=== PATIENT | female | born 1965 | race Caucasian/White ===

== ENCOUNTER → 2016-06-21 | Outpatient (CLI) | payer OTHER ==
--- NOTE | 2016-06-23 11:30 | US ---
EXAMINATION TYPE: US MSK Right forefoot DATE OF EXAM: 06/21/2016 8:40 AM COMPARISON: NONE CLINICAL HISTORY: 50-year-old female S 93.621 Second and third plantar plate tear. TECHNIQUE: Targeted sonographic examination of the first, second, and third digits including the webs paces for assessment of the plantar plates and along the site of patient's pain dorsally at the secon d and third digits. FINDINGS: Evaluation of the plantar aspect of the first, second, and third MTP joints shows no convincing evide nce for plantar plate tear. The overlying flexor tendons appear within normal limits without any teno synovial fluid. Targeted scanning along the dorsum of the first MTP joint shows no discrete abnormality. Targeted scanning along the dorsum of the second MTP joint shows prominent area of lobulated hypoecho genicity spanning 1.6 cm and measuring up to 0.4 cm thick. Some subtle internal echogenic foci seem t o be present within. There is no significant hyperemia. There may be some subtle erosions of the dors al proximal phalangeal base and the dorsal metatarsal head/neck. Targeted scanning along the dorsum of the third MTP joint suggests a trace underlying joint effusion and mild tenosynovial fluid along the extensor tendon. IMPRESSION: 1. No convincing evidence for second or third plantar plate tear within the right foot. 2. Apparent pannus or synovitis along the dorsal 2nd MTP joint. There may be some internal speckles a nd possible subtle marginal erosions. Differential considerations include an inflammatory arthropathy such as RA or crystalline arthropathy such as gout. A dorsal capsular injury is an alternative consi deration. Clinically correlate. 3. Mild tenosynovitis of the extensor tendon along the dorsum of the third MTP joint.
== END | disposition home or self-care (01) ==
LOC: RADUSWWP 07:43
PROVIDERS: ATTEND Podiatrist Foot & Ankle Surgery
DX: S93.504A Unspecified sprain of right lesser toe(s), initial encounter (principal); M65.871 Other synovitis and tenosynovitis, right ankle and foot; X58.XXXA Exposure to other specified factors, initial encounter

== ENCOUNTER → 2016-07-04 | Outpatient (CLI) | payer OTHER ==
[2016-07-04 16:47] LABS: Basophils # (A) 0.1 k/uL (0-0.2); Basophils % (A) 1 %; CH 29.7; CHCM 32.1; Eosinophils # (A) 0.2 k/uL (0-0.7); Eosinophils % (A) 4 %; HCT 40.5 % (34.0-46.0); HDW 2.23; HGB 12.9 gm/dL (11.4-16.0); Luc # (Auto) 0.13; Luc % (Auto) 2; Lymphocytes # (A) 2.4 k/uL (1.0-4.8); Lymphocytes % (A) 37 %; MCH 29.7 pg (25.0-35.0); MCHC 31.9 g/dL (31.0-37.0); Mean Platelet Volume 6.6; Monocytes # (A) 0.3 k/uL (0-1.0); Monocytes % (A) 5 %; Neutrophils # (A) 3.3 k/uL (1.3-7.7); Neutrophils % (A) 52 %; RBC 4.36 m/uL (3.80-5.40); RDW 13.4 % (11.5-15.5); WBC 6.4 k/uL (3.8-10.6); WBC (Perox) 6.69
[2016-07-04 17:01] LABS: C Reactive Protein <5.0 mg/L (<10.0)
[2016-07-04 17:03] LABS: Rheumatoid Factor, Qnt <9 IU/mL (<12)
[2016-07-04 18:13] LABS: Erythrocyte Sedimentation Rate 12 mm/hr (0-20)
--- NOTE | 2016-07-04 23:49 | MR ---
EXAMINATION TYPE: MR foot RT wo con DATE OF EXAM: 07/04/2016 9:58 PM COMPARISON: NONE HISTORY: 2nd & 3rd MPJ pain Standard multiplanar, multisequence MRI departmental protocol Multiplanar, multisequence images of the right foot were acquired. Diffusion weighted imaging was per formed. FINDINGS: The Achilles tendon is intact. Plantar fascia is intact. There is a small ankle joint effus ion. The medial and lateral flexor tendons of the ankle are intact. The metatarsals are intact. There is no evidence of a fracture. There is minimal joint fluid seen at the first to fourth MP joints neil t is probably above normal. I see no bony destructive process. The tarsal bones are intact. The toes appear intact. There is no subluxation. IMPRESSION: Mild joint fluid is seen at the ankle joint as well as the first second third fourth MP joints consis tent with minimal synovitis. No fracture seen.
[2016-07-05 12:40] LABS: HLA B27 POSITIVE; HLA B27 Comment SEEBELOW
== END | disposition home or self-care (01) ==
LOC: RADMRIMAIN 16:23
PROVIDERS: ATTEND Podiatrist Foot & Ankle Surgery
DX: M25.879 Other specified joint disorders, unspecified ankle and foot (principal); M77.41 Metatarsalgia, right foot; M19.90 Unspecified osteoarthritis, unspecified site
CPT/HCPCS: 84550; 85025; 85652; 86038; 86140; 86431; 86812

== ENCOUNTER → 2016-07-10 | Outpatient (CLI) | payer BC, OTHER ==
--- NOTE | 2016-07-10 12:45 | MM ---
Reason for exam: screening (asymptomatic). Last mammogram was performed 1 year ago. History: Family history of premenopausal breast cancer in sister at age 51. Took hormonal contraceptives for 6 years beginning at age 16. Physical Findings: A clinical breast exam by your physician is recommended on an annual basis and results should be correlated with mammographic findings. MG 3D Screening Mammo W/Cad Bilateral CC and MLO view(s) were taken. Prior study comparison: July 07, 2015, bilateral MG 3d screening mammo w/cad. June 29, 2014, bilateral MG screening mammo w CAD. There are scattered fibroglandular densities. Finding: There are typically benign round calcifications in the subareolar position of the right breast. There is no discrete abnormality. ASSESSMENT: Benign, BI-RAD 2 RECOMMENDATION: Routine screening mammogram of both breasts in 1 year.
--- NOTE | 2016-07-10 19:13 | WWHP ---
CHIEF COMPLAINT: Patient's here for her routine gynecologic exam and mammogram. HPI: This is a 50-year-old G1, P1 with an LMP of 2010. The patient has been amenorrheic since her endometrial ablation in 2010. She had severe hot flashes that started last year. She had a trial of paroxetine for the hot flashes, but the improvement did not last. She was changed to Effexor and this seemed to help with the hot flashes much better. She initially had some constipation with this, but found that it was probably related to a decongestant that she was taking and has been doing much better with this. She is otherwise without complaints. PAST MEDICAL HISTORY: Gastroesophageal reflux disease, herniated disc, asthma and foot neuropathy. MEDICATIONS: 1. Protonix 40 mg daily. 2. Gabapentin 300 mg daily. 3. Effexor 75 mg daily. 4. Calcium supplement daily. 5. Vitamin E supplement daily. 6. Biotin daily. 7. Wallace-3 supplement daily. ALLERGIES: DARVOCET AND CELEBREX. PAST SURGICAL HISTORY: section in 1993, endometrial ablation with hysteroscopy and polypectomy 2010. Multiple D&Cs in the past, colonoscopy 2015. 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 SOCIAL HISTORY: She denies tobacco and drug use and has 1 to 2 alcoholic drinks per week. 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 FAMILY HISTORY: Mother had Alzheimer disease. Father of CHF. Sister has chronic bradycardia. Brother had an IL at age 34. Sister had breast cancer. REVIEW OF SYSTEMS: She has lost 6 pounds over the last year. RESPIRATORY: She is getting over a cold. Cardiac and GI are unremarkable. PHYSICAL EXAM: Blood pressure 103/69. Height 5 feet 9 inches. Weight 147 pounds. Temperature 97.9, pulse 84. This is a well-developed, well-nourished white female who is alert and oriented x3, in no acute distress. HEENT is within normal limits. NECK: Supple without mass or thyromegaly. CHEST AND LUNGS: Clear to auscultation. HEART: Regular rate and rhythm. Breasts are without mass or discharge. Axillary is negative for adenopathy. BACK: Negative for CVA tenderness. ABDOMEN: Soft, nontender, without palpable masses. PELVIC: External genitalia reveal mild atrophy without lesions. Cervix and vagina appear normal without significant atrophy. There is no evidence of prolapse. The uterus is slightly retroverted, nongravid size and nontender. There are no palpable adnexal masses or tenderness. Rectovaginal is negative for mass or tenderness and is negative for occult blood. EXTREMITIES: Nontender. IMPRESSION: 1. A 50-year-old female with amenorrhea following endometrial ablation, probable postmenopausal female with vasomotor symptoms improved with Effexor. 2. Normal gynecologic exam. PLAN: 1. Pap smear was deferred, since she had a normal one last year. 2. Self-breast examination was discussed. 3. Mammogram will be done today. 4. Osteoporosis prevention was discussed. I have recommended at least 120% of the daily value of calcium. 5. We have discussed her menopausal symptoms and Effexor use. She will try to wean off of the Effexor gradually. She will use the lowest effective dose of Effexor and try to eventually wean off of this. 6. She will return in 1 year.
== END | disposition home or self-care (01) ==
LOC: WWCWWP 08:04
PROVIDERS: ATTEND Obstetrics & Gynecology
DX: Z12.31 Encounter for screening mammogram for malignant neoplasm of breast (principal)
CPT/HCPCS: 77063; G0202

== ENCOUNTER → 2016-07-31 | Outpatient (CLI) | payer OTHER ==
--- NOTE | 2016-08-01 11:24 | MR ---
EXAMINATION TYPE: MR foot RT w con DATE OF EXAM: 07/31/2016 9:46 PM COMPARISON: MRI right foot 07/04/2016 HISTORY: Pain in right foot CONTRAST: Standard multiplanar, multisequence MRI departmental protocol utilizing 13 mL intravenous MultiHance gadolinium contrast. FINDINGS: Postcontrast images are obtained and compared to the recent exam. There is no diagnostic evidence of a Varner's neuroma. There is edema and enhancement within the sesa moid bone adjacent to the head of the first metatarsal There is enhancement along the flexor and extensor tendons of the third digit compatible with severe tenosynovitis. There also is enhancement along the flexor tendon fourth digit compatible with tenosyn ovitis. No abnormal enhancement within any additional bony structures. No soft tissue mass or enhancing mass. There is abnormal signal within the Proteus longus tendon. There is a small amount of fluid within th e second MTP joint enhancement along the extensor tendon compatible with tenosynovitis. IMPRESSION: 1. No diagnostic evidence of Varner's neuroma. 2. Sesamoiditis adjacent first metatarsal. 3. Severe tenosynovitis of the flexor and extensor tendons third digit. 4. Tenosynovitis flexor tendon fourth digit. 5. split tear Proteus longus tendon. 6. small joint effusion second MTP joint. With mild Tenosynovitis of the extensor tendon
== END ==
LOC: RADMRIMAIN 20:38
PROVIDERS: ATTEND Physician Assistant
DX: M79.671 Pain in right foot (principal); M65.9 Synovitis and tenosynovitis, unspecified

== ENCOUNTER → 2017-07-23 | Outpatient (CLI) | payer OTHER ==
[2017-07-23 10:13] LABS: HCT 40.7 % (34.0-46.0); HGB 13.6 gm/dL (11.4-16.0); MCH 30.2 pg (25.0-35.0); MCHC 33.4 g/dL (31.0-37.0); MCV 90.3 fL (80.0-100.0); Mean Platelet Volume 6.5; Platelet Count 277 k/uL (150-450); RDW 13.1 % (11.5-15.5); WBC 6.1 k/uL (3.8-10.6)
--- NOTE | 2017-07-23 10:34 | WWHP ---
[facility] - HISTORY AND PHYSICAL DATE OF SERVICE: 07/23/2017 CHIEF COMPLAINT: The patient is here for routine gynecologic exam and mammogram. HPI: This is a 51-year-old, G1, P1 with an LMP of 2010. She has been amenorrheic since her endometrial ablation in 2010. She has been considered menopausal during the past couple of years since she has had significant hot flashes. She has been taking Effexor for the vasomotor symptoms and this has been helpful. The patient has been experiencing decreased libido and has also noticed discomfort with intercourse secondary to vaginal dryness. She is interested in trying to wean off of the Effexor to see if this helps. PAST MEDICAL HISTORY: Gastroesophageal reflux disease, herniated disc problems, asthma and foot neuropathy. MEDICATIONS: 1. Protonix 40 mg daily. 2. Gabapentin 300 mg daily. 3. Effexor 75 mg daily. 4. Calcium supplement daily. 5. Vitamin E supplement daily. 6. Coats-3 supplement daily. 7. Vitamin D3, 1000 units daily. ALLERGIES: Allergies to DARVOCET and CELEBREX. PAST SURGICAL HISTORY: section in 1993, endometrial ablation with hysteroscopy and polypectomy 2010, multiple D and Cs in the past, colonoscopy 2015, right foot surgery 2017. 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 SOCIAL HISTORY: She denies tobacco and drug use and has about 1 alcohol containing drinks per week. 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 FAMILY HISTORY: Mother had Alzheimer's disease. Father of CHF. Sister had chronic bradycardia. Brother had an RI at age 34. Sister had breast cancer. REVIEW OF SYSTEMS: Weight has been stable. She denies respiratory, cardiac or GI problems. PHYSICAL EXAM: Blood pressure 111/70, height 5 feet 9 inches, weight 148 pounds, BMI 22, temperature 96.9, pulse 70. This is a well-developed, well-nourished, white female, who is alert and oriented x3, in no acute distress. HEENT is within normal limits. NECK: Supple without mass or thyromegaly. CHEST AND LUNGS: Clear to auscultation. HEART: Regular rate and rhythm. Breasts are without mass or discharge. Axillary exam is negative for adenopathy. BACK: Negative for CVA tenderness. ABDOMEN: Soft, nontender, without palpable masses. PELVIC EXAM: External genitalia reveals mild atrophy without lesions. Cervix and vagina reveal mild atrophy without lesions. There is mild narrowing of the vagina secondary to atrophy. There is no evidence of prolapse. The uterus is slightly retroverted, nongravid size and nontender. There are no palpable adnexal masses or tenderness. Rectovaginal exam is negative for mass or tenderness and is negative for occult blood. EXTREMITIES: Nontender. IMPRESSION: 1. A 51-year-old menopausal female, using Effexor for menopausal vasomotor symptoms. 2. Dyspareunia secondary to vaginal dryness which is probably secondary to genital atrophy. 3. Decreased libido, possibly secondary to the menopause and dyspareunia, but also may be related to medications she is taking such as the Effexor or gabapentin. PLAN: 1. Pap smear was performed. 2. Self breast examination was discussed. 3. Screening mammogram will be done today. 4. We have discussed her complaints including vaginal dryness and decreased libido. She would like to have a trial of weaning off of the Effexor. She will start taking Effexor 37.5 mg daily and she will then gradually go to every other day and hopefully off of this medication. 5. Estrace vaginal cream 1 to 2 grams intravaginally 2 times weekly. 6. Lab studies will include CBC, TSH, comprehensive Chem panel, and fasting lipid profile. This will be drawn today. 7. She will return in 1 year and p.r.n. MMODL / IJN: [id number] /
[2017-07-23 11:42] LABS: ALT 23 U/L (9-52); AST 21 U/L (14-36); Albumin 4.4 g/dL (3.5-5.0); Alkaline Phosphatase 82 U/L (38-126); Anion Gap 8 mmol/L; Blood Urea Nitrogen 15 mg/dL (7-17); Calcium 9.9 mg/dL (8.4-10.2); Carbon Dioxide 32 mmol/L (22-30); Chloride 103 mmol/L (98-107); Cholesterol 306 mg/dL (<200); Glucose 86 mg/dL (74-99); HDL Cholesterol 76 mg/dL (40-60); LDL Cholesterol,Calculated 212 mg/dL (0-99); Potassium 4.7 mmol/L (3.5-5.1); Sodium 143 mmol/L (137-145); Total Bilirubin 0.5 mg/dL (0.2-1.3); Total Protein 7.3 g/dL (6.3-8.2); Triglycerides 91 mg/dL (<150)
--- NOTE | 2017-07-24 09:29 | MM ---
Reason for exam: screening (asymptomatic). Last mammogram was performed 1 year ago. History: Family history of premenopausal breast cancer in sister at age 51. Took hormonal contraceptives for 6 years beginning at age 16. Physical Findings: A clinical breast exam by your physician is recommended on an annual basis and results should be correlated with mammographic findings. MG 3D Screening Mammo W/Cad Bilateral CC and MLO view(s) were taken. Prior study comparison: July 10, 2016, bilateral MG 3d screening mammo w/cad. July 07, 2015, bilateral MG 3d screening mammo w/cad. There are scattered fibroglandular densities. No significant changes when compared with prior studies. ASSESSMENT: Benign, BI-RAD 2 RECOMMENDATION: Routine screening mammogram of both breasts in 1 year.
== END | disposition home or self-care (01) ==
LOC: WWCWWP 08:37
PROVIDERS: ATTEND Obstetrics & Gynecology
DX: Z12.31 Encounter for screening mammogram for malignant neoplasm of breast (principal)
CPT/HCPCS: 36415; 77063; 77067; 80053; 80061; 84443; 85027